=== PATIENT | female | born 1985 | race Caucasian/White ===

== ENCOUNTER 2024-03-10 16:50 | Emergency (ER) | payer OTHER, SELFPAY ==
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
--- NOTE | 2024-03-10 17:04 | ECG_ITS ---
Test Reason : CHEST PAIN Blood Pressure : / mmHG Vent. Rate : 082 BPM Atrial Rate : 082 BPM P-R Int : 142 ms QRS Dur : 090 ms QT Int : 404 ms P-R-T Axes : 061 024 010 degrees QTc Int : 472 ms Normal sinus rhythm with sinus arrhythmia Normal ECG No previous ECGs available Referred By: Dee Mayfield Electronically Signed By:ERAN FANG MD
[2024-03-10 17:07] VITALS: BP 136/80; PULSE 86; O2SAT 97
[2024-03-10 17:46] VITALS: BP 135/93; PULSE 82; RESP 16; TEMP 36.7; O2SAT 98; BMI 38.7
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
[2024-03-10] MEDS: Ketorolac Tromethamine 30 MG/ML VIAL IM (19:43)
[2024-03-10] MEDS: Cyclobenzaprine HCl 10 MG TABLET PO (20:11)
[2024-03-10 20:16] VITALS: BP 148/100; PULSE 79; RESP 20; TEMP 36.6; O2SAT 100
== END 2024-03-10 20:17 | disposition home or self-care (01) ==
PROVIDERS: Emergency Provider Emergency Medicine; PCP Nurse Practitioner Family
DX: S13.4XXA Sprain of ligaments of cervical spine, initial encounter (principal); S10.93XA Contusion of unspecified part of neck, initial encounter; R07.89 Other chest pain; M79.605 Pain in left leg; N64.4 Mastodynia; V43.62XA Car passenger injured in collision with other type car in traffic accident, initial encounter; Y93.9 Activity, unspecified; Y92.410 Unspecified street and highway as the place of occurrence of the external cause; Y99.8 Other external cause status; Z79.899 Other long term (current) drug therapy
CPT/HCPCS: 71046; 73590; 93005; 96372; 99284; J1885

== ENCOUNTER → 2024-03-10 17:04 | Outpatient (BNV) | payer MEDICAID, SELFPAY | PROVIDERS: Emergency Provider Emergency Medicine; PCP Nurse Practitioner Family; Visit Provider Internal Medicine Cardiovascular Disease | DX: R07.9 Chest pain, unspecified (principal); I49.9 Cardiac arrhythmia, unspecified | CPT/HCPCS: 93010 ==